=== PATIENT | male | born 1975 | race African-American/Black ===

== ENCOUNTER → 2021-04-09 | Outpatient (CLI) | payer BC | LOC: RAD 15:01 | PROVIDERS: ATTEND Nurse Practitioner | DX: M47.816 Spondylosis without myelopathy or radiculopathy, lumbar region (principal); M25.78 Osteophyte, vertebrae; M41.86 Other forms of scoliosis, lumbar region; M54.2 Cervicalgia; M25.562 Pain in left knee; M25.561 Pain in right knee ==